=== PATIENT | female | born 1935 | race African-American/Black ===

== ENCOUNTER 2017-11-03 20:09 | Emergency (ER) | payer OTHER ==
[~2017-11-03] VITALS: Ht 162.6 cm; Wt 73.9 kg
--- NOTE | ~2017-11-03 | EKG ---
[address] [address] [place] [address] ELECTROCARDIOGRAM REPORT Name: STONEDARLINERUSTY Divina [id number] Admission: 11/03/17 Attend Phys: Discharge: 11/03/17 Date of : 33 Report #: [id number] THIS REPORT FOR: //name// [facility] ED Test Date: 2017-11-03 Test Time: 21:23:04 Pat Name: RUSTY RITTER Department: Room: Gender: F Operations Specialist: JANELL : 1935 Requested By: Cookie Mcdonald Order Number: [id number] MD: Bryan Tapia Measurements Intervals [place] Rate: 88 P: 47 WA: 142 QRS: 15 QRSD: 106 T: 150 QT: 391 QTc: 473 Interpretive Statements Sinus rhythm Probable LVH with secondary repol abnrm Anterior ST elevation, probably due to LVH Compared to ECG 08/10/2016 16:04:22 Left bundle-branch block no longer present Electronically Signed On 11-04-2017 8:38:19 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
[~2017-11-03 20:09] MED LIST: APAP500 PO; ASPIR 8181 MG PO; ASPIRIN325 PO; ATIVAN0.5 MG PO; BACLOFEN20 MG PO; CALCIUM 500 +1 EAC4 PO; CALCIUM 600 +1 EAC7 PO; CENTRUM SILVER1 EAC1 PO; CENTRUM SILVER1 EAC4 PO; CIPROFLOXACIN500 M1 PO; COLACE100 MG PO; COMBIVENT INH; FISH OIL 1,001000 M2 PO; FOLBIC RF TABL1 EACH PO; GABAPENTIN 100100 MG PO; HYDROCODON-ACE1 EAC7 PO; IRON325 PO; K-DUR 20 MEQ T20 MEQ PO; KEPPRA 500 MG500 M1; KEPPRA 500 MG500 M1 PO; KRILL OIL 3001 EACH PO; LAMOTRIGINE150 MG PO; LASIX 20 MG TAB20 MG PO; LASIX 40 MG TAB40 MG PO; LIDODERM 5%1 PATC1 TRANSDERM; LOPRESSOR25 PO; NORVASC10 MG PO; OMEGA-31000 MG PO; POTASSIUM20 PO; PRINIVIL20 MG PO; PRINIVIL5 MG PO; SERTRALINE HCL50 MG PO; SIMVASTATIN10 MG PO; TOPROL XL50 MG PO; ZOCOR 10 MG TAB10 MG PO
[2017-11-03 21:50] LABS: ABSOLUTE NEUTROPHILS 4.1 thou/uL (1.4-8.2); BASOPHILS 0.7 % (0.0-2.0); EOSINOPHILS 5.2 % (0.0-3.0); HEMATOCRIT 33.2 % (37.0-47.0); HEMOGLOBIN 10.7 gm/dL (12.0-15.0); MCH 25.4 pg (26.0-34.0); MCHC 32.3 g/dL (28.0-37.0); MCV 78.6 fL (80.0-100.0); PLATELET COUNT 240 thou/uL (150-400); POLYS 55.1 % (36.0-66.0); RBC 4.23 mil/uL (4.20-5.00); RDW 14.6 % (10.5-14.5); WBC 7.5 thou/uL (4.0-11.0)
[2017-11-03 21:50] LABS: URINE BLOOD NEGATIVE (Negative); URINE CLARITY CLEAR; URINE COLOR YELLOW; URINE GLUCOSE-RANDOM* NEGATIVE (Negative); URINE KETONES TRACE (Negative); URINE LEUKOCYTES TRACE (Negative); URINE NITRITE NEGATIVE (Negative); URINE PROTEIN (DIPSTICK) NEGATIVE (Negative); URINE UROBILINOGEN 0.2 E.U./dl (0.2-1.0)
[2017-11-03 21:55] LABS: ICTOTEST (BILI CONFIRMATORY) Negative (Negative); URINE BILIRUBIN NEGATIVE (Negative)
[2017-11-03 22:01] LABS: ANION GAP 11 mmol/L (7-16); BUN 19 mg/dL (7-18); CALCIUM 9.2 mg/dL (8.5-10.1); CHLORIDE 105 mmol/L (98-107); CO2 26 mmol/L (21-32); CREATININE 1.4 mg/dL (0.6-1.0); GLUCOSE 104 mg/dL (74-106); POTASSIUM 3.9 mmol/L (3.5-5.1); SODIUM 142 mmol/L (136-145)
[2017-11-03 22:10] LABS: ALBUMIN 3.3 g/dL (3.4-5.0); SGOT 22 U/L (15-37); SGPT 14 U/L (30-65); TOTAL BILIRUBIN 0.2 mg/dL (<0.1-1.0); TOTAL PROTEIN 7.9 g/dL (6.4-8.2); TROPONIN-I < 0.04 ng/mL (<0.06)
[2017-11-03 23:05] VITALS: BP 156/79
== END 2017-11-03 23:19 | disposition home or self-care (01) ==
LOC: ER 20:09
PROVIDERS: Nurse Practitioner Family
DX: S93.492A Sprain of other ligament of left ankle, initial encounter (principal); F05 Delirium due to known physiological condition; G89.29 Other chronic pain; M54.5 Low back pain; G47.30 Sleep apnea, unspecified; M19.90 Unspecified osteoarthritis, unspecified site; E78.5 Hyperlipidemia, unspecified; I12.9 Hypertensive chronic kidney disease with stage 1 through stage 4 chronic kidney disease, or unspecified chronic kidney disease; N18.2 Chronic kidney disease, stage 2 (mild); Z86.718 Personal history of other venous thrombosis and embolism; Z86.73 Personal history of transient ischemic attack (TIA), and cerebral infarction without residual deficits; Z88.8 Allergy status to other drugs, medicaments and biological substances; Z88.5 Allergy status to narcotic agent; W23.0XXA Caught, crushed, jammed, or pinched between moving objects, initial encounter; Y93.89 Activity, other specified; Y92.89 Other specified places as the place of occurrence of the external cause; Y99.8 Other external cause status

== ENCOUNTER 2018-07-31 14:56 | Emergency (ER) | payer OTHER ==
[~2018-07-31] VITALS: Ht 162.6 cm; Wt 81.7 kg
--- NOTE | ~2018-07-31 | EKG ---
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 Machine: [facility] : 1935 Requested By: Shantel Quijano Order Number: [id number] MD: Bryan Tapia Measurements Intervals [place] Rate: 81 P: 55 UT: 156 QRS: 44 QRSD: 151 T: 213 QT: 435 QTc: 505 Interpretive Statements Sinus rhythm Left bundle branch block Compared to ECG 11/03/2017 21:23:04 Left bundle-branch block now present Electronically Signed On 08-01-2018 11:30:06 CDT by Bryan Tapia [email or web address] <ELECTRONICALLY SIGNED> By: Bryan Tapia MD, [facility] 08/01/18 1130 1535 1535 Bryan Tapia MD, [facility] /EPI
[2018-07-31 16:09] LABS: ABSOLUTE NEUTROPHILS 6.5 thou/uL (1.4-8.2); BASOPHILS 0.6 % (0.0-2.0); EOSINOPHILS 1.8 % (0.0-3.0); HEMATOCRIT 35.1 % (37.0-47.0); HEMOGLOBIN 11.3 gm/dL (12.0-15.0); LYMPHOCYTES 16.5 % (24.0-44.0); MCH 25.9 pg (26.0-34.0); MCHC 32.3 g/dL (28.0-37.0); MONOCYTES 3.6 % (1.0-8.0); PLATELET COUNT 213 thou/uL (150-400); POLYS 77.5 % (36.0-66.0); RBC 4.39 mil/uL (4.20-5.00); RDW 14.7 % (10.5-14.5); WBC 8.4 thou/uL (4.0-11.0)
[2018-07-31 16:16] LABS: ANION GAP 9 mmol/L (7-16); BUN 21 mg/dL (7-18); CALCIUM 10.3 mg/dL (8.5-10.1); CHLORIDE 101 mmol/L (98-107); CO2 26 mmol/L (21-32); CREATININE 1.8 mg/dL (0.6-1.0); GLUCOSE 131 mg/dL (74-106); POTASSIUM 4.4 mmol/L (3.5-5.1); SODIUM 136 mmol/L (136-145)
[2018-07-31 16:25] LABS: ALBUMIN 3.9 g/dL (3.4-5.0); SGOT 23 U/L (15-37); SGPT 14 U/L (30-65); TOTAL BILIRUBIN 0.3 mg/dL (<0.1-1.0); TOTAL PROTEIN 9.3 g/dL (6.4-8.2); TROPONIN-I <0.06 ng/mL (<0.06)
[2018-07-31 17:51] LABS: URINE BILIRUBIN NEGATIVE (Negative); URINE BLOOD NEGATIVE (Negative); URINE CLARITY CLEAR; URINE COLOR YELLOW; URINE GLUCOSE-RANDOM* NEGATIVE (Negative); URINE KETONES TRACE (Negative); URINE NITRITE-REFLEX NEGATIVE (Negative); URINE PROTEIN (DIPSTICK) NEGATIVE (Negative); URINE SPECIFIC GRAVITY 1.025 (1.005-1.035); URINE UROBILINOGEN 0.2 E.U./dl (0.2-1.0)
[2018-07-31 17:53] LABS: URINE LEUKOCYTES-REFLEX TRACE (Negative)
== END 2018-07-31 19:30 | disposition home or self-care (01) ==
LOC: ER 14:56
PROVIDERS: Physician Assistant
DX: R53.1 Weakness (principal); R10.9 Unspecified abdominal pain; R11.0 Nausea; M54.5 Low back pain; G89.29 Other chronic pain; E78.5 Hyperlipidemia, unspecified; Z95.1 Presence of aortocoronary bypass graft; M13.862 Other specified arthritis, left knee; I12.9 Hypertensive chronic kidney disease with stage 1 through stage 4 chronic kidney disease, or unspecified chronic kidney disease; N18.2 Chronic kidney disease, stage 2 (mild); Z88.5 Allergy status to narcotic agent; Z88.8 Allergy status to other drugs, medicaments and biological substances